=== PATIENT | female | born 1980 | race Caucasian/White ===

== ENCOUNTER 2017-01-26 15:28 | Emergency (ER) | payer MEDICAID ==
[~2017-01-26] VITALS: Ht 160 cm; Wt 93.0 kg
[2017-01-26] MEDS ORDERED: CLON1TAB PO (15:43)
[2017-01-26] MEDS ORDERED: LEVO75TA PO (15:43)
[2017-01-26] MEDS ORDERED: HYDROCODONE/APAP 10-325 MG TABLET ONE (16:24)
[2017-01-26] MEDS ORDERED: HYDROCODONE/APAP 10-325 MG TABLET PO ONE (16:30)
--- NOTE | 2017-01-26 16:41 | NUR ---
Crutches dispensed. Pt instructed on proper use of crutches. Patient able to demonstrate correct use of crutches.
[2017-01-26 16:46] VITALS: BP 134/80
--- NOTE | 2017-01-26 16:49 | NUR ---
Patient discharged to home in stable conditon. Written and verbal after care instructions given. Patient verbalizes understanding of instructions.
== END 2017-01-26 16:48 | disposition home or self-care (01) ==
LOC: ER 15:29
DX: S93.401A Sprain of unspecified ligament of right ankle, initial encounter (principal); Z88.1 Allergy status to other antibiotic agents; W18.30XA Fall on same level, unspecified, initial encounter; Y93.89 Activity, other specified; Y99.8 Other external cause status; Y92.89 Other specified places as the place of occurrence of the external cause
CPT/HCPCS: 73590; 73610; A4663

== ENCOUNTER 2017-08-30 11:20 | Emergency (ER) | payer MEDICAID ==
[~2017-08-30 11:20] MED LIST: CLON1TAB PO; LEVO75TA PO
== END 2017-08-30 13:08 | disposition home or self-care (01) ==
LOC: CANPREER → ER 11:20
DX: Z53.21 Procedure and treatment not carried out due to patient leaving prior to being seen by health care provider (principal)